=== PATIENT | male | born 1940 | race Caucasian/White ===

== ENCOUNTER 2020-11-01 08:39 | Day surgery (SDC) | payer MEDICARE, BC ==
[~2020-11-01 08:39] MED LIST: Propofol 200 MG/20 ML SDV ONE
[2020-11-01] MEDS ORDERED: Sodium Chloride 0.9% 10 ML Syringe FLUSH PRN (08:45)
[2020-11-01] MEDS: Lactated Ringers 1,000 ML IV SCH (09:28)
--- NOTE | 2020-11-01 09:35 | PCM.HPR ---
H & P Addendum review - H & P Addendum Review Date of Original H & P: 10/08/20 Date Reviewed: 11/01/20 Time Reviewed: 09:35 Patient was Examined: No Changes
[2020-11-01] MEDS ORDERED: Propofol 200 MG/20 ML SDV ONE (09:43)
[2020-11-01] MEDS ORDERED: Lidocaine 2% 5 ML SDV ONE (09:43)
--- NOTE | 2020-11-01 10:25 | PCM.OPNOTE ---
- General Post-Op/Procedure Note Date of Surgery/Procedure: 11/01/20 Operative Procedure(s): EGD and Colonoscopy Findings: Normal EGD Sig tics Pre Op Diagnosis: Anemia and hematochezia Post-Op Diagnosis: Same Anesthesia Technique: MAC Primary Surgeon: Mikey Jack Anesthesia Provider: Cyndi Almendarez Complications: None Condition: Good
[2020-11-01 11:22] VITALS: BP 142/83; PULSE 78
--- NOTE | 2020-11-01 13:26 | OR ---
Date of Procedure: 11/01/2020 PREOPERATIVE DIAGNOSES: 1. Anemia. 2. Hematochezia. POSTOPERATIVE DIAGNOSES: 1. Normal esophagogastroduodenoscopy. 2. Sigmoid diverticulosis. PROCEDURES: 1. Esophagogastroduodenoscopy. 2. Colonoscopy. ANESTHESIA: IV sedation. PROCEDURE IN DETAIL: The patient was brought to the procedure room where he was placed on his left side and IV sedation administered. Oral bite block was placed and the upper endoscope advanced into the esophagus under direct vision without difficulty. Vocal cords were viewed and were normal. Scope was advanced to the third portion of the duodenum. Duodenum and pylorus were normal. Antrum and body of the stomach were normal. Retroflexion revealed a normal-appearing fundus. There were no ulcers, erosions, gastritis, or other source of blood. Air was removed and the scope withdrawn through the remaining esophagus which appeared normal. The patient tolerated this portion of the procedure well. Next, colonoscopy was performed after digital rectal exam was done which was normal. Colonoscope was inserted and advanced to the level of the cecum without difficulty. Cecal position was confirmed by identifying the appendiceal lumen and ileocecal valve. Prep was good and surfaces were well visualized. Upon withdrawing the scope, the ascending, transverse, and descending colon were normal in appearance. Sigmoid colon had few diverticula present. Rectum was normal and retroflexion was normal. Air was removed and the scope withdrawn. The patient tolerated the procedure well and returned to Recovery in stable condition. No source of anemia was identified. No further colonoscopies are necessary due to the patient's age. SHALOM CALABRESE MD /[id number]
== END 2020-11-01 11:29 | disposition home or self-care (01) ==
LOC: LL.SDS 08:39
PROVIDERS: ATTEND Surgery
DX: K57.30 Diverticulosis of large intestine without perforation or abscess without bleeding (principal); K92.1 Melena; D64.9 Anemia, unspecified; I10 Essential (primary) hypertension; E11.9 Type 2 diabetes mellitus without complications; E78.5 Hyperlipidemia, unspecified; Z01.812 Encounter for preprocedural laboratory examination; Z20.822 Contact with and (suspected) exposure to COVID-19; Z88.0 Allergy status to penicillin; Z79.899 Other long term (current) drug therapy
CPT/HCPCS: 00813; 82947; J2704; J7120; U0002